=== PATIENT | female | born 1950 | race Caucasian/White ===

== ENCOUNTER 2021-09-30 03:57 | Inpatient (IN) ==
[2021-09-30] MEDS ORDERED: Naloxone 0.4 MG/ML INJ IVP PRN (08:58)
[2021-09-30] MEDS: Ringers Solution, Lactated 1,000 ML IVC SCH (10:55)
[2021-09-30] MEDS: Budesonide/Formoterol 160/4.5 1 PUFF INH IH SCH ×2 (11:12→21:30)
[2021-09-30] MEDS: *HR* Heparin 5,000 UNIT/ML VIAL SQ SCH ×2 (14:21→21:58)
[2021-09-30] MEDS: Ondansetron 4 MG/2 ML VIAL IVP PRN (17:43)
[2021-09-30] MEDS: Morphine Sulfate 2 MG/ML SYRINGE IVP PRN (17:44)
[2021-09-30] MEDS ORDERED: Morphine Sulfate 2 MG/ML SYRINGE IVP ONE (21:56)
[2021-10-01] MEDS: Morphine Sulfate 2 MG/ML SYRINGE IVP PRN ×4 (00:38→17:39)
[2021-10-01] MEDS: Ringers Solution, Lactated 1,000 ML IVC SCH (00:45)
[2021-10-01] MEDS: Ondansetron 4 MG/2 ML VIAL IVP PRN ×3 (05:01→22:00)
[2021-10-01] MEDS: *HR* Heparin 5,000 UNIT/ML VIAL SQ SCH ×3 (05:03→22:01)
[2021-10-01 08:57] LABS: Hematocrit 39.9 % (35.3-44.9); Hemoglobin 11.6 g/dL (11.5-15.4); Mean Corpuscular HGB Conc 29.1 g/dL (31.6-35.5); Mean Corpuscular Hemoglobin 24.7 pg (28.0-33.3); Mean Corpuscular Volume 85.1 fL (83.0-100.0); Mean Platelet Volume 9.1 fL (9.4-12.4); Platelet Count 316 K/mcL (140-400); Red Blood Count 4.69 M/mcL (3.82-4.97); Red Cell Distribution Width 15.3 % (11.5-14.5); White Blood Count 9.3 K/mcL (4.3-11.1)
[2021-10-01 09:17] LABS: BUN/Creatinine Ratio 18 (6-26); Blood Urea Nitrogen 11 mg/dL (8-23); Calcium 9.4 mg/dL (8.6-10.3); Carbon Dioxide 29 mEq/L (23-29); Chloride 104 mEq/L (98-107); Glucose 96 mg/dL (70-105); Osmolality,Calculated 287 (280-300); Potassium 3.7 mEq/L (3.5-5.1); Sodium 139 mEq/L (136-145); eGFR For African Americans > 60 (> 60); eGFR For Non-African Americans > 60 (> 60)
[2021-10-01] MEDS: Budesonide/Formoterol 160/4.5 1 PUFF INH IH SCH ×2 (09:31→23:35)
[2021-10-01] MEDS: Metoclopramide 10 MG/2 ML VIAL IVP SCH (23:54)
[2021-10-02] MEDS: *HR* Heparin 5,000 UNIT/ML VIAL SQ SCH (05:32)
[2021-10-02] MEDS: Metoclopramide 10 MG/2 ML VIAL IVP SCH (05:32)
[2021-10-02 10:50] VITALS: BP 149/76; PULSE 74; TEMP 97.8; O2SAT 97
== END 2021-10-02 12:07 | disposition home or self-care (01) | DRG 390 ==
LOC: 4WAOSI → SUATTDRO 09:05
PROVIDERS: ADMIT Internal Medicine; ATTEND Internal Medicine